=== PATIENT | female | born 2000 | race Caucasian/White ===

== ENCOUNTER 2022-08-15 15:26 | Emergency (ER) | payer BC, SELFPAY ==
[2022-08-15] VITALS (9 sets, daily range): BP systolic 103–114; BP diastolic 60–79; PULSE 116–130; RESP 18–20; TEMP 36.6–37.3; O2SAT 98–100; BMI 25.7
--- NOTE | 2022-08-15 15:47 | PC.NURSE ---
IV STARTED, BLOOD DRAWN, PT REQUESTING PAIN MEDICATION
--- NOTE | 2022-08-15 15:50 | XR_ITS ---
PROCEDURE INFORMATION: Exam: XR Chest Exam date and time: 08/15/2022 3:58 PM Age: 21 years old Clinical indication: Shortness of breath TECHNIQUE: Imaging protocol: Radiologic exam of the chest. Views: 2 views. COMPARISON: CR CXR CHEST(2 VIEWS-NOT PORTABLE) 11/07/2015 10:14 PM FINDINGS: Lungs: Lung volumes are mild to moderately diminished compared to prior study. Nonspecific mild hazy bibasilar opacities are consistent with atelectasis, edema, or pneumonia. No focal areas of consolidation. Pleural spaces: Slight blunting of the left lateral costophrenic angle could reflect trace effusion. No right effusion. Negative for pneumothorax. Heart/Mediastinum: Cardiac silhouette and pulmonary vasculature are within range of normal. Bones/joints: There is no evidence of acute fracture. Mild convex right thoracic curvature is noted. IMPRESSION: Nonspecific minor bibasilar hazy markings are most consistent with atelectasis, edema, or pneumonia. Cannot exclude trace left pleural effusion.
--- NOTE | 2022-08-15 16:07 | PC.NURSE ---
PT TO XR
[2022-08-15 16:11] LABS: Alanine Aminotransferase 17 U/L (12-78); Albumin Level 3.7 g/dl (3.5-5.0); Albumin/Globulin Ratio 0.9 (1.1-1.8); Alkaline Phosphatase 203 U/L (38-126); Anion Gap 15.1 mEq/L (5-15); Aspartate Amino Transferase 23 U/L (14-36); Bilirubin,Total 1.4 mg/dl (0.2-1.3); Blood Urea Nitrogen 16 mg/dl (7-17); Carbon Dioxide 25 mmol/L (22.0-30.0); Chloride 99 mmol/L (98-107); Creatinine Clearance Estimated 72 mL/min (50-200); Estimated Glomerular Filt Rate 51 ml/min (>60); GFR (African American) 61 ML/MIN (>60); Globulin 3.9 g/dL (1.3-3.2); Glucose 125 mg/dl (74-100); Potassium 4.1 mmoL/L (3.5-5.1); Sodium 135 mmol/L (136-145); Total Protein,Serum 7.6 g/dl (6.3-8.2)
[2022-08-15 16:18] LABS: Basophils % 0.2 % (0.1-2.0); Hematocrit 32.6 % (37.0-47.0); Hemoglobin 10.7 g/dL (12.2-16.2); Lymphocytes # 0.7 K/mm3 (0.7-4.5); Lymphocytes % 3.2 % (10-50); Mean Corpuscular HGB Conc 32.9 g/dL (31.8-35.4); Mean Corpuscular Hemoglobin 25.9 pg (27.0-31.2); Mean Corpuscular Volume 78.7 fl (81-99); Mean Platelet Volume 8.8 fl (7.4-10.4); Monocytes # 0.6 K/mm3 (0.1-1.0); Monocytes % 2.8 % (1.7-9.3); Neutrophils # 21.3 K/mm3 (1.8-7.8); Neutrophils % 93.8 % (37.0-80.0); Platelet Count 345 K/mm3 (142-424); Red Blood Count 4.15 M/mm3 (4.20-5.40); White Blood Count 22.7 K/mm3 (4.8-10.8)
[2022-08-15 16:25] LABS: MANUAL DIFFERENTIAL MANUAL DIFFERENTIAL (MANUAL DIFF)
--- NOTE | 2022-08-15 16:37 | PC.NURSE ---
DR. CHATMAN AT BEDSIDE
[2022-08-15 16:41] LABS: NT Pro Brain Natriuretic Pep. 1420 pg/mL (0-125)
--- NOTE | 2022-08-15 16:42 | CT_ITS ---
PROCEDURE INFORMATION: Exam: CTA Chest With Contrast Exam date and time: 08/15/2022 4:59 PM Age: 21 years old Clinical indication: Shortness of breath; Additional info: SOB, post--- had baby 1 week ago TECHNIQUE: Imaging protocol: Computed tomographic angiography of the chest with contrast. 3D rendering (Not supervised by radiologist): MIP and/or 3D reconstructed images were created by the technologist. Radiation optimization: All CT scans at this facility use at least one of these dose optimization techniques: automated exposure control; mA and/or kV adjustment per patient size (includes targeted exams where dose is matched to clinical indication); or iterative reconstruction. Contrast material: ISOVUE; Contrast volume: 70 ml; Contrast route: INTRAVENOUS (IV); COMPARISON: CR XR CHEST 2V 08/15/2022 3:58 PM FINDINGS: Pulmonary arteries: There is heterogeneous contrast attenuation of visualized pulmonary arteries, more pronounced in the subsegmental vessels and likely related to contrast bolus. Detection ofpulmonary emboli in the small and peripheral pulmonary arterial is significantly limited. Motion artifact also limits exclusion of small and peripheral pulmonary emboli. As seen, no large or central pulmonary emboli. Aorta: There is no evidence of an aortic aneurysm. There is no evidence of aortic dissection, leak, rupture, or other acute vascular pathology. Veins: There is mild narrowing of the caliber of the mid superior vena cava which remains patent. Findings could reflect extrinsic compression by the mediastinal process. Correlate clinically. Thyroid: The visualized thyroid gland is normal. Lungs: Lung volumes are mildly diminished, greater on the left. Nonspecific mild bibasilar opacities, left greater than right, are consistent with atelectasis, edema, or pneumonia. Pleural spaces: There is a small left pleural fluid collection present. No right effusion. No pneumothorax. Heart: There is a small pericardial fluid collection present. The heart is mildly enlarged. Cannot exclude a small amount of pneumo pericardium. Mediastinal space: Pneumomediastinum is present. There is hazy fat stranding within the mediastinal fat suggesting edema/inflammation/mediastinitis. Correlate clinically. Air is also seen along the anterior heart border, most of which is likely additional pneumomediastinum. Cannot entirely exclude small components of pneumopericardium. Correlate clinically. There is ill definition of the contour of the fascial planes of mediastinum consistent edema/infiltration/inflammation. Ill-defined heterogeneous densities are present in the paratracheal, and subcarinal regions, some of this may reflect lymphadenopathy. There are a few areas of subtle low attenuation and cannot exclude small fluid collections. There is also soft tissue fullness involve hilar region suggesting adenopathy. Ill definition of the mediastinal fat with heterogeneous and somewhat nodular densities suggest scattered areas of adenopathy. Is difficult to measure discrete nodes due to the fat stranding and ill definition mediastinal soft tissue densities. A prevascular lymph node measures 9 mm in short axis. A precarinal lymph node measures 11 mm in short axis. Visualization of the mid esophagus is limited due to soft tissue heterogeneous mediastinal densities. There is lack of visualization of the air within the mid esophagus which could potentially be due to some mass effect of by the mediastinal process. Correlate clinically. Both internal jugular veins are visualized. The left IJ is difficult to visualize in the region of the s
--- NOTE | 2022-08-15 16:54 | PC.NURSE ---
[address]
--- NOTE | 2022-08-15 17:11 | PC.NURSE ---
PT ASSISTED TO BR
[2022-08-15 17:26] LABS: Microscopic, Urine URINE MICROSCOPIC (MICROSCOPIC)
[2022-08-15 17:36] LABS: Appearance,Urine CLEAR (Clear); Blood, Urine 3+ (Negative); Color,Urine ORANGE (Yellow); Glucose,Urine (UA) Negative (Negative); Ketones,Urine TRACE (Negative); Leukocyte Esterase,Urine Negative (Negative); Nitrate,Urine POSITIVE (Negative); Protein,Urine 3+ (Negative); Specific Gravity, Urine >= 1.030 (1.005-1.030)
[2022-08-15 17:39] LABS: Bilirubin,Urine 2+ (Negative)
--- NOTE | 2022-08-15 17:42 | PC.NURSE ---
ANDREIA CHAMBERS speaking with samantha
--- NOTE | 2022-08-15 17:45 | PC.NURSE ---
DR. CHATMAN AT BEDSIDE TO UPDATE PT ON POC
[2022-08-15 17:49] LABS: Creatinine,Urine Random 317 mg/dL (Not Estab.)
[2022-08-15 17:51] LABS: Bacteria,Urine Trace /lpf; WBC,Urine Occasional #/hpf (0-3)
[2022-08-15 17:52] LABS: Lymphocytes % 1 % (10-50); Monocytes % 2 % (2-9); Neutrophils % 97 % (42-76); Total Cells Counted 100
[2022-08-15 17:54] LABS: Benzodiazepines Screen,Urine Negative ng/ml (<200)
[2022-08-15 17:54] LABS: Hypochromasia 1+; Microcytosis 1+; Platelet Estimate Normal
--- NOTE | 2022-08-15 17:54 | PC.NURSE ---
placed call to [facility] for transfer they have cardio thoracic availability at [facility] placed on waiting list
[2022-08-15 17:55] LABS: Amphetamine/Metha Screen,Urine Negative ng/ml (<1000); Barbiturates Screen,Urine Negative ng/ml (<200)
[2022-08-15 17:56] LABS: Methadone Screen,Urine Negative ng/ml (<300)
[2022-08-15 17:57] LABS: Cannabinoid Screen,Urine Negative ng/ml (<50); Cocaine Screen,Urine Negative ng/ml (<300)
[2022-08-15 17:59] LABS: Opiate Screen,Urine Negative ng/ml (<300); Phencyclidine Screen,Urine Negative ng/ml (<25)
--- NOTE | 2022-08-15 18:02 | PC.NURSE ---
Dr Liu speaking with hospitalist at [facility]
--- NOTE | 2022-08-15 18:03 | PC.NURSE ---
pt accepted by Dr cm at [facility]
--- NOTE | 2022-08-15 18:06 | PC.NURSE ---
PT UPDATED AT THIS TIME PER DR. CHATMAN. PT MEDICATED PER EMAR
[2022-08-15 18:08] LABS: Troponin I < 0.01 ng/ml (0.00-0.034)
--- NOTE | 2022-08-15 18:13 | PC.NURSE ---
PT HAS BEEN ACCEPTED TO [facility], AWAITING BED ASSIGNMENT
--- NOTE | 2022-08-15 18:50 | PC.NURSE ---
PT REQUESTING TO SPEAK WITH ED
--- NOTE | 2022-08-15 19:05 | HMH.EDGENADL ---
Discharge Plan Disposition Patient Disposition: Xfer Short-Term Hosp Condition: Fair Referrals Follow up/Referrals: Provider,Referral, MD [Primary Care Provider] - See instructions Clinical Impressions Clinical Impression: Acquired pneumomediastinum, Elevated brain natriuretic peptide (BNP) level, Proteinuria, Chest pain Discharge ED Provider: Tyrese Liu General Adult HPI General Chief complaint: PAIN Stated complaint: 08/08, back pain, soa Time Seen by Provider: 08/15/22 15:30 Mode of Arrival: Wheelchair Limitations: No Limitations Description of Symptoms (Recalled from ER Triage Doc. by RN): PT REPORTS ON 08/08/22. UNCOMPLICATED. PRESENTS WITH DIFFUSE BACK PAIN, RIB PAIN AND SHORTNESS OF BREATH. PT REPORTS COUGH X SEVERAL MONTHS. DENIES FEVER History of Present Illness HPI narrative: 21yo F that denies significant past medical history presents to the emergency department secondary to chest pain that radiates to her left shoulder. Complains of shortness of breath. Patient is 7 days . She is a G1, P1. Reports uncomplicated . Reports uncomplicated spontaneous vaginal delivery. Denies tobacco use. Denies previous surgery. Denies fever. Related Data Allergies Allergy/AdvReac Type Severity Reaction Status Date / Time clarithromycin [From BIAXIN] Allergy Unknown Unverified 07/25/17 14:11 [facility] Disclaimer: The information contained in this section may have been updated after the patient was seen, as this information can be updated by other users. Social History Smoking Status: Current every day smoker alcohol intake: never current occupational status: other Travel in the last 8 weeks: None ROS Obtained: Yes Systems reviewed as appropriate & no additional complaints except as documented Physical Exam General General appearance: alert and in distress (Tachycardic, anxious, uncomfortable) Head Head exam: atraumatic Eye Eye exam: Present normal appearance and PERRL ENT ENT exam: Present mucous membranes moist Neck Neck exam: Present full ROM and trachea midline Chest Chest inspection: Present symmetric chest wall rise Respiratory Respiratory exam: Present normal lung sounds bilaterally; Absent respiratory distress, wheezes or stridor Cardiovascular Cardiovascular exam: Present normal rhythm and tachycardia Abdominal Exam Abdominal exam: Present soft and normal bowel sounds; Absent distention, tenderness or guarding Extremities Exam Extremities exam: Present normal inspection, full ROM and normal capillary refill; Absent tenderness or edema Back Exam Back exam: Present normal inspection and tenderness Neurological Exam Neurological exam: Present alert, oriented X3 and CN II-XII intact Psychiatric Psychiatric exam: Present normal affect and normal mood Skin Skin exam: Present warm, dry and intact Medical Decision Making Medical Records Medical records reviewed: Yes I reviewed the patient's medical records. Stepan Inquiry Pt receiving controlled substance: Yes Stepan was queried for this patient: No Reason not queried -: Emergent pt cond-no time Risks and benefits of using a controlled substance: were discussed with pt by me Vital Signs: 08/15/22 15:28 08/15/22 18:05 Temperature 99.2 F Temperature Source Oral Pulse Rate 117 H Pulse Rate [Radial] 130 H Respiratory Rate 18 18 Blood Pressure 111/72 Blood Pressure [Left Arm] 114/64 Blood Pressure Mean 86 Blood Pressure Mean [Left Arm] 80 Blood Pressure Source [Left Arm] Automatic Cuff Blood Pressure Position [Left Arm] Sitting 02 Sat by Pulse Oximetry 100 100 Oxygen Delivery Method Room Air Lab Data Lab results reviewed: Yes I reviewed the patient's lab results. Lab Results 08/15/22 15:55: WBC 22.7 H*, RBC 4.15 L, Hgb 10.7 L, Hct 32.6 L, MCV 78.7 L, MCH 25.9 L, MCHC 32.9, RDW 15.0, Plt Count 345, MPV 8.8, Neut % (Auto) 93.8 H, Lymph % (
--- NOTE | 2022-08-15 19:06 | PC.NURSE ---
DR. CHATMAN AT BEDSIDE
--- NOTE | 2022-08-15 19:09 | PC.NURSE ---
paged ob hand alterations seamstress at [facility]
--- NOTE | 2022-08-15 21:00 | PC.NURSE ---
Called [facility] and they stated they will call back with a bed assignment
--- NOTE | 2022-08-15 21:24 | PC.NURSE ---
Called report to Abbi HINDS on . [phone]. Pt reports she will not go by EMS, states her is waiting to take her. states ok to leave IV in place. Wrapped up PIV with rosemary
[2022-08-16 00:25] LABS: Coronavirus 19, PCR Not Detected (NotDetected); Influenza A, PCR Not Detected (NotDetected); Influenza B, PCR Not Detected (NotDetected)
== END 2022-08-15 21:59 | disposition short-term general hospital (02) ==
PROVIDERS: Emergency Provider Family Medicine
DX: J98.2 Interstitial emphysema (principal); R79.89 Other specified abnormal findings of blood chemistry; R07.89 Other chest pain; R80.9 Proteinuria, unspecified; F17.210 Nicotine dependence, cigarettes, uncomplicated
CPT/HCPCS: 71046; 71275; 80053; 80305; 81001; 82570; 83880; 84155; 84484; 85007; 85025; 96361; 96374; 96375; 99291; C9803; G0390; J0696; J2405; Q9967; U0003; U0005

== ENCOUNTER 2023-02-20 03:11 | Emergency (ER) | payer BC, SELFPAY ==
[2023-02-20 03:25] VITALS: BP 110/63; PULSE 92; RESP 18; TEMP 36.6; O2SAT 99; BMI 25.1
--- NOTE | 2023-02-20 03:31 | XR_ITS ---
PROCEDURE INFORMATION: Exam: XR Chest Exam date and time: 02/20/2023 3:54 AM Age: 22 years old Clinical indication: Pain; Right-sided; Additional info: R flank pain, h/o pleural effusion TECHNIQUE: Imaging protocol: Radiologic exam of the chest. Views: 2 views. COMPARISON: CR XR CHEST 2V 08/15/2022 3:58 PM FINDINGS: Lungs: Unremarkable. No consolidation. Pleural spaces: Unremarkable. No pleural effusion. No pneumothorax. Heart/Mediastinum: Unremarkable. No cardiomegaly. Bones/joints: Unremarkable. IMPRESSION: No acute findings.
--- NOTE | 2023-02-20 03:34 | HMH.EDGENADL ---
Discharge Plan Disposition Patient Disposition: Home, Self-Care Condition: Good Prescriptions Prescriptions: New cefadroxil 500 mg capsule 500 mg PO BID 7 Days Qty: 14 0RF ketorolac 10 mg tablet 10 mg PO Q8H PRN (Reason: pain) Qty: 20 0RF Referrals Follow up/Referrals: Aamir Chapa MD [Primary Care Provider] - See instructions Robb Long MD [Referring] - See instructions Activity Restrictions/Add. Instructions Additional Instructions/Restrictions: You were evaluated in the emergency department today. At this time, we feel that your symptoms are likely due to a kidney stone. Please pickling solution maker your prescriptions at the pharmacy and take them as prescribed. I am providing you with information for Dr. Long who is a urologist. You may contact them to schedule an appointment if you wish for further follow-up. I also recommend close follow-up with your primary care provider. Return to the emergency department for any new or worsening symptoms, such as fever, chills, intractable nausea and vomiting, worsening pain, or other concerns. Clinical Impressions Clinical Impression: Nephrolithiasis, Hematuria Instructions Patient Instructions: DI for Kidney Stones, DI for Hematuria, DI for Flank Pain Discharge ED Provider: Kathie Cavazos General Adult HPI General Chief complaint: PAIN Stated complaint: Back pain on right side radiating to front Time Seen by Provider: 02/20/23 03:16 Mode of Arrival: Ambulatory Source of Information: Patient Limitations: No Limitations Description of Symptoms (Recalled from ER Triage Doc. by RN): pt c/o mid back pain that radiates into her R ribs along with minimal SOA. pt states this happened in August and she was dx with fluid on her heart/lungs. History of Present Illness HPI narrative: This patient is a 22-year-old female presenting to the emergency department for evaluation with concern for right flank pain that radiates around her right side. She states that this started around 1:30 AM and woke her up from sleep. She took Tylenol at home with no improvement. She states that this feels similar to a fluid collection that she had on her lungs back in August after . She states that she had fluid buildup around her heart and lungs and nearly lost her life. She states that she was admitted at [facility] with a drain in place in her lung. She denies any recent fevers, chills, cough, congestion, shortness of breath, chest pain, nausea, vomiting, changes in bowel movements, dysuria, polyuria, hematuria, or other concerns. She denies any history of kidney stones. Related Data Previous Rx's Medication Instructions Recorded cefadroxil 500 mg capsule 500 mg PO BID 7 days #14 caps 02/20/23 ketorolac 10 mg tablet 10 mg PO Q8H PRN pain #20 tabs 02/20/23 Allergies Allergy/AdvReac Type Severity Reaction Status Date / Time clarithromycin [From BIAXIN] Allergy Mild Rash Verified 02/20/23 03:30 [facility] Disclaimer: The information contained in this section may have been updated after the patient was seen, as this information can be updated by other users. Social History Smoking Status: Never smoker alcohol intake: never current occupational status: other Travel in the last 8 weeks: None ROS Obtained: Yes All systems reviewed & no additional complaints except as documented 14 point review of systems obtained and negative except as mentioned in HPI. Physical Exam General General appearance: alert and in no apparent distress Head Head exam: atraumatic and normocephalic Eye Eye exam: Present normal appearance, PERRL and EOMI ENT ENT exam: Present normal exam, normal oropharynx and mucous membranes moist Neck Neck exam: Present normal inspection, full ROM and trachea midline Chest Chest inspection: Present normal inspection and symmetric chest wall rise; Absent tenderness Respiratory
[2023-02-20 03:38] LABS: Microscopic, Urine URINE MICROSCOPIC (MICROSCOPIC)
[2023-02-20 03:39] LABS: Basophils % 0.7 % (0.1-2.0); Eosinophils # 0.2 K/mm3 (0.0-0.4); Eosinophils % 3.9 % (0.1-12.0); Hematocrit 38.3 % (37.0-47.0); Hemoglobin 12.4 g/dL (12.2-16.2); Lymphocytes # 1.9 K/mm3 (0.7-4.5); Lymphocytes % 34.1 % (10-50); Mean Corpuscular HGB Conc 32.4 g/dL (31.8-35.4); Mean Corpuscular Volume 80.2 fl (81-99); Mean Platelet Volume 8.4 fl (7.4-10.4); Monocytes # 0.4 K/mm3 (0.1-1.0); Monocytes % 6.9 % (1.7-9.3); Neutrophils % 54.3 % (37.0-80.0); Platelet Count 233 K/mm3 (142-424); Red Blood Count 4.77 M/mm3 (4.20-5.40); Red Cell Distribution Width 13.4 % (11.5-17.5); White Blood Count 5.6 K/mm3 (4.8-10.8)
[2023-02-20 03:43] LABS: Appearance,Urine CLEAR (Clear); Bilirubin,Urine Negative (Negative); Blood, Urine 1+ (Negative); Color,Urine YELLOW (Yellow); Glucose,Urine (UA) Negative (Negative); Ketones,Urine Negative (Negative); Leukocyte Esterase,Urine Negative (Negative); Nitrate,Urine Negative (Negative); Protein,Urine TRACE (Negative); Specific Gravity, Urine 1.025 (1.005-1.030)
[2023-02-20 03:43] LABS: Chloride 110 mmol/L (98-107)
[2023-02-20 03:44] LABS: Potassium 3.7 mmoL/L (3.5-5.1); Sodium 141 mmol/L (136-145)
[2023-02-20 03:46] LABS: Alanine Aminotransferase 47 U/L (12-78); Alkaline Phosphatase 79 U/L (38-126); Aspartate Amino Transferase 37 U/L (14-36); Bilirubin,Total 0.2 mg/dl (0.2-1.3); Blood Urea Nitrogen 17 mg/dl (7-17); Creatinine Clearance Estimated 126 mL/min (50-200); Estimated Glomerular Filt Rate 103 ml/min (>60); GFR (African American) 124 ML/MIN (>60)
[2023-02-20 03:47] LABS: Albumin Level 4.3 g/dl (3.5-5.0); Albumin/Globulin Ratio 1.5 (1.1-1.8); Anion Gap 12.7 mEq/L (5-15); Calcium 8.7 mg/dl (8.4-10.2); Carbon Dioxide 22 mmol/L (22.0-30.0); Globulin 2.9 g/dL (1.3-3.2); Glucose 89 mg/dl (74-100); Total Protein,Serum 7.2 g/dl (6.3-8.2)
[2023-02-20 03:50] LABS: HCG Qualitative, Serum Negative (Negative)
--- NOTE | 2023-02-20 04:00 | CT_ITS ---
PROCEDURE INFORMATION: Exam: CT Abdomen And Pelvis Without Contrast Exam date and time: 02/20/2023 4:08 AM Age: 22 years old Clinical indication: Abdominal pain; Flank; Right; Additional info: R flank pain TECHNIQUE: Imaging protocol: Computed tomography of the abdomen and pelvis without contrast. Radiation optimization: All CT scans at this facility use at least one of these dose optimization techniques: automated exposure control; mA and/or kV adjustment per patient size (includes targeted exams where dose is matched to clinical indication); or iterative reconstruction. REPORTING DATA: Count of CT and Cardiac NM exams in prior 12 months: This patient has received [address] and 0 known cardiac nuclear medicine studies in the 12 months prior to the current study. COMPARISON: CT ANGIO CHEST PE PROTOCOL 08/15/2022 4:59 PM FINDINGS: Lungs: Tiny calcified granuloma in the right lower lobe. Lung bases are otherwise relatively clear. Heart: No cardiomegaly or pericardial effusion. Liver: Normal liver. Gallbladder and bile ducts: Normal gallbladder. No calcified stones. No ductal dilation. Pancreas: Normal pancreas. No ductal dilation. Spleen: Multiple small calcified granulomas in the spleen. No splenomegaly. Adrenal glands: Adrenal glands are normal. Kidneys and ureters: No hydronephrosis or obstructing calculus. A couple of tiny nonobstructive left renal calculi, measuring 1-2 mm. Stomach and bowel: No acute bowel abnormality. No obstruction. No mucosal thickening. Appendix: Normal appendix. Intraperitoneal space: No free fluid or free air. Vasculature: Unremarkable. No abdominal aortic aneurysm. Lymph nodes: No adenopathy. Urinary bladder: Normal urinary bladder. Reproductive: Uterus and adnexal structures are grossly unremarkable. Bones/joints: No acute osseous abnormality or evidence of osseous metastatic disease. Soft tissues: Tiny fat containing umbilical hernia. IMPRESSION: 1. No acute findings. 2. No hydronephrosis or obstructing calculus. 3. A couple of tiny nonobstructive left renal calculi, measuring 1-2 mm. 4. Normal appendix. 5. Tiny fat containing umbilical hernia.
--- NOTE | 2023-02-20 04:01 | ECG_ITS ---
APPROVED REPORT Exam: Resting ECG HR:77 bpm ECG Measurements Heart Rate 77 AXES NH 156 P 68 QRSd 82 QRS 65 QT 384 T 43 QTc 416 Conclusion SINUS RHYTHM POSSIBLE RIGHT VENTRICULAR CONDUCTION DELAY [RSR (QR) IN V1/V2] BORDERLINE ECG UNCONFIRMED REPORT Electronically signed by : Troy Baker MD 02/22/2023 21:28:20
[2023-02-20 04:02] LABS: Amorphous Sediment,Urine 1+ /lpf; Bacteria,Urine 1+ /lpf
--- NOTE | 2023-02-20 04:53 | PC.NURSE ---
Dr. Cavazos at [facility]
[2023-02-20 05:17] VITALS: BP 109/60; PULSE 95; RESP 19; TEMP 36.6
== END 2023-02-20 05:25 | disposition home or self-care (01) ==
PROVIDERS: Emergency Provider Emergency Medicine; PCP Family Medicine
DX: N20.0 Calculus of kidney (principal); R31.9 Hematuria, unspecified
CPT/HCPCS: 71046; 74176; 80053; 81001; 84703; 85025; 93005; 96374; 99285